=== PATIENT | female | born 1980 | race American Indian/Alaskan Native ===

== ENCOUNTER 2020-10-01 07:48 | Day surgery (SDC) | payer BC ==
[~2020-10-01 07:48] MED LIST: SODIUM CHLORIDE 0.9% 1000 ML 1,000 ML IV SCH
[2020-10-01] MEDS ORDERED: propofoL 200 MG/20 ML VIAL IV ONE ×2 (08:13→08:50)
[2020-10-01] MEDS ORDERED: LIDOCAINE MPF (2%) 20 MG/1 ML VIAL 5 ML ONE (08:13)
--- NOTE | 2020-10-01 08:25 | Anesthesia Consultation ---
Anesthesia Consult and Med Hx Date of service: 10/01/20 - Airway Anesthetic Teeth Evaluation: Good ROM Head & Neck: Adequate Mental/Hyoid Distance: Adequate Mallampati Class: Class II Intubation Access Assessment: Probably Good - Pulmonary Exam CTA: Yes - Cardiac Exam Cardiac Exam: RRR - Pre-Operative Health Status ASA Pre-Surgery Classification: ASA1 Proposed Anesthetic Plan: MAC - Pulmonary Hx Smoking: No Hx Respiratory Symptoms: No - Cardiovascular System Hx Hypertension: No - Central Nervous System CVA: No - Gastrointestinal Hx Gastroesophageal Reflux Disease: No - Endocrine Hx Renal Disease: No Hx Liver Disease: No Hx Insulin Dependent Diabetes: No Hx Non-Insulin Dependent Diabetes: No Hx Thyroid Disease: No - Other Systems Hx Obesity: No - Additional Comments Anesthesia Medical History Comments: No prior GA or FHx anesthetic complications. Colonoscopy for evaluation of abdominal pain.
--- NOTE | 2020-10-01 08:25 | Anesthesia Day of Surgery ---
Anesthesia Day of Surgery - Day of Surgery Patient Examined: Yes Patient H&P Reviewed: Yes Patient is NPO: Yes
--- NOTE | 2020-10-01 09:17 | Procedure Note ---
Date of procedure: 09/30/20 Pre-op diagnosis: Abdominal Pain/ Colitis Post-op diagnosis: other (R/o Microscopic colitis/ R/o Ileitis/Melanosis Coli/Minor,Internal Hemorrhoid/ No colon Polyps or Diverticular disease noted) Procedure: Colonoscopy with Biopsy Anesthesia: MAC Surgeon: CATINA LUKE Estimated blood loss: minimal Pathology: list Specimen disposition: to lab Condition: stable Disposition: same day (Treat withprn Bentyl, OTC Probiotic (as directed)/ Avoid aspirin and NSAID for 5 days; otherwise resume home medication and follow up in 1 to 2 weeks ([phone]).)
--- NOTE | 2020-10-01 09:46 | Operative Report ---
PROCEDURE: Colonoscopy with biopsy. INDICATIONS: A 40-year-old -[place] female in otherwise good health, who has recently been having abdominal pain, mainly on the right side that has prompted her to come to the Emergency Room. Colonoscopy was done to make sure that there was not any associated colitis. DESCRIPTION OF PROCEDURE: The procedure was done after getting informed consent with MAC anesthesia. Initial rectal exam was unremarkable. Instrument was passed through the rectum onto the cecum, which was identified with ileocecal valve and the appendiceal orifice. Visualization was fair to good. Terminal ileum was intubated, showed normal mucosa. Biopsy was done to rule out for possible ileitis. 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 Random biopsies were done from the cecum, ascending colon, transverse colon, descending colon, and sigmoid. Besides the melanosis coli, there was no evidence of any diverticular disease of colon polyp and the rectum showed some minor internal hemorrhoid on the retroverted view. ASSESSMENT: Abdominal pain, rule out microscopic colitis, rule out ileitis, melanosis coli, minor internal hemorrhoid. PLAN: To have the patient avoid aspirin and aspirin-related products for the next few days. Treat the patient with a p.r.n. dose of Bentyl, encourage the patient to take probiotics and the patient has persistence of constipation, may be treated with either Linzess or Amitiza, which will be written when the patient comes for followup. Procedure was done in the GI lab with assistance of the GI lab team, which included Faina BACON as well as the durability technician and with assistance of anesthesia. JOB# [id number] CODIE/YANNI
--- NOTE | 2020-10-01 10:04 | Post Anesthesia Evaluation ---
- Post Anesthesia Evaluation Patient Participated: Yes Airway Patent: Yes Stable Respiratory Function: Yes Nausea/Vomiting: No Temp > 96.8F: Yes Pain Manageable: Yes Adequeate Hydration: Yes Anesthesia Complications: No
[2020-10-01 10:07] VITALS: BP 120/65
== END 2020-10-01 07:49 | disposition home or self-care (01) ==
LOC: GIO 07:48
DX: R10.32 Left lower quadrant pain (principal); K64.8 Other hemorrhoids; K63.89 Other specified diseases of intestine; Z79.899 Other long term (current) drug therapy
CPT/HCPCS: 45380; 88305; J2704; J7030